=== PATIENT | male | born 1985 | race Caucasian/White ===

== ENCOUNTER 2018-08-14 09:26 | Emergency (ER) | payer OTHER ==
[~2018-08-14] VITALS: Ht 170.2 cm; Wt 89.5 kg
[~2018-08-14 09:26] MED LIST: LEVO500T10 PO; OMEG-157 PO; SULF1TAB31 PO
[2018-08-14 09:38] VITALS: BP 118/56; PULSE 67; RESP 19; Ht 170.2 cm; Wt 89.5 kg
[2018-08-14] MEDS ORDERED: KETOROLAC 30 MG INJ IM STA (09:59)
[2018-08-14] MEDS ORDERED: METHOCARBAMOL 750 MG TAB PO ONE (10:00)
[2018-08-14] MEDS ORDERED: METH750T93 PO (11:19)
--- NOTE | 2018-08-14 11:23 | ERD ---
ER Documentation Chief Complaint Chief Complaint RIGHT LEG PAIN/INJURY HPI 33-year-old male presents for right ankle pain status post fall yesterday. Patient states that a few days ago he developed a muscle strain from pushing a car. He presented to [facility]. Ultrasound done there showed no DVT. He was given [place] but he states he has not filled the prescription yet. He states that he was using crutches yesterday slipped over a water puddle in the twisted his right ankle. Most of the pain on the lateral side of the right ankle. He states that he has 8 out of 10 pain. Pain is nonradiating. No other modifying factors noted, no treatments tried at home. ROS All systems reviewed and are negative except as per history of present illness. Medications Home Meds Active Scripts Methocarbamol* (Robaxin*) 750 Mg Tablet, 750 MG PO TID PRN for MUSCLE SPASMS, #30 TAB Prov:EAMON SANTOS DO 08/14/18 Levofloxacin* (Levofloxacin*) 500 Mg Tablet, 500 MG PO DAILY for 10 Days, #10 TAB Prov:JUAREZ JIMENEZ MD 02/24/18 Robins-3/Dha/Epa/Fish Oil (FISH OIL EC 1,000 MG SOFTGEL) 1 Each Capsule.dr, 1000 MG PO BID for 30 Days, #60 TAB 6 Refills Prov:JUAREZ JIMENEZ MD 02/24/18 Sulfamethoxazole/Trimethoprim* (Bactrim Ds* Tablet) 1 Each Tablet, 1 TAB PO BID for 10 Days, #20 TAB Prov:JUAREZ JIMENEZ MD 02/24/18 Allergies Allergies: Coded Allergies: No Known Allergy (Unverified , 02/13/18) PMhx/Soc Medical and Surgical Hx: pt denies Medical Hx, pt denies Surgical Hx History of Surgery: No Anesthesia Reaction: No Hx Neurological Disorder: No Hx Respiratory Disorders: No Hx Cardiac Disorders: No Hx Psychiatric Problems: No Hx Miscellaneous Medical Probl: No Hx Alcohol Use: Yes Hx Substance Use: Yes (MARIJUANA) Hx Tobacco Use: Yes Smoking Status: Current every day smoker FmHx Family History: No coronary disease Physical Exam Vitals Vital Signs Date Temp Pulse Resp B/P (MAP) Pulse Ox O2 O2 Flow FiO2 Time Delivery Rate 08/14/18 97.8 67 19 118/56 93 09:38 (76) Physical Exam Const: No acute distress Resp: Clear to auscultation bilaterally Cardio: Regular rate and rhythm, no murmurs Skin: No petechiae or rashes Back: No midline or flank tenderness Neur: Awake and alert Psych: Normal Mood and Affect Lower Extremity -right: Skin: No laceration Compartments: Soft Motor: Full active range of motion hip/knee/mildly decreased range of motion of the right ankle Sensation: Intact to light touch FDWS/MF/LF/P surfaces. Bones: Nontender pelvis/knee/proximal tibia/tenderness palpation over the right lateral malleolus, there was also tenderness palpation of the right calf muscle Joints: Small amount of effusion noted over the right lateral malleolus Pulses/Perfusion: 2+ DP, Capillary refill < 2 seconds Results 24 hrs Current Medications Medications Dose Sig/Tonia Start Time Status Last (Trade) Ordered Route PRN Stop Time Admin Dose Reason Admin Ketorolac 30 mg ONCE STAT 08/14/18 DC 08/14/18 Tromethamine IM 09:59 10:22 (Toradol) 08/14/18 10:00 750 mg ONCE ONCE 08/14/18 DC 08/14/18 Methocarbamol PO 10:00 10:22 (Robaxin) 08/14/18 10:01 Procedures/MDM Medical Decision Making: Differential diagnosis includes but not limited to fracture, dislocation, muscle strain, ligamentous sprain. Patient appeared well on physical exam. There was tenderness over the right ankle, lateral malleolus Patient was neurovascularly intact ED course: Patient was given Toradol and Robaxin. Symptoms improved with treatment. Imaging: X-ray right ankle 3V Interpreted by me: Bones: No fracture Joints: No dislocation Foreign Body: None Prescription(s): Patient given prescription for supportive medication(s). Patient advised to follow up with PCP in 1-2 days. Patient advised to return to ED for new or worsening symptoms. Patient stable on discharge from the ED. Disclaimer: Inadvertent spelling and grammatical errors are likely due to EHR/dictation software use and do not reflect on the overall quality of patient care. Also, please note that the electronic time recorded on this note does not necessarily reflect the actual time of the patient encounter. Departure Diagnosis: Primary Impression: Right ankle injury Encounter type: initial encounter Qualified Codes: S99.911A - Unspecified injury of right ankle, initial encounter Condition: Fair Patient Instructions: What Are Ankle Sprains?, Treating Ankle Sprains Referrals: [facility] YOU HAVE RECEIVED A MEDICAL SCREENING EXAM AND THE RESULTS INDICATE THAT YOU DO NOT HAVE A CONDITION THAT REQUIRES URGENT TREATMENT IN THE EMERGENCY DEPARTMENT. FURTHER EVALUATION AND TREATMENT OF YOUR CONDITION CAN WAIT UNTIL YOU ARE SEEN IN YOUR DOCTORS OFFICE WITHIN THE NEXT 1-2 DAYS. IT IS YOUR RESPONSIBILITY TO MAKE AN APPOINTMENT FOR FOLOW-UP CARE. IF YOU HAVE A PRIMARY DOCTOR --you should call your primary doctor and schedule an appointment IF YOU DO NOT HAVE A PRIMARY DOCTOR YOU CAN CALL OUR PHYSICIAN REFERRAL HOTLINE AT IF YOU CAN NOT AFFORD TO SEE A PHYSICIAN YOU CAN CHOSE FROM THE FOLLOWING [facility] [address] [facility] [address]. [facility] [address] [facility] [facility] [address] [facility] [address] [facility] [address] [facility]. [facility]. [address] Additional Instructions: Call your primary care doctor TOMORROW for an appointment during the next 1-2 days.See the doctor sooner or return here if your condition worsens before your appointment time. EAMON SANTOS DO August 14, 2018 11:23
== END 2018-08-14 11:49 | disposition home or self-care (01) ==
LOC: FTE 09:26
DX: S99.911A Unspecified injury of right ankle, initial encounter (principal); F17.210 Nicotine dependence, cigarettes, uncomplicated; W01.0XXA Fall on same level from slipping, tripping and stumbling without subsequent striking against object, initial encounter; Y92.9 Unspecified place or not applicable
CPT/HCPCS: 73610; 96372; J1885; Z7502; Z7610